=== PATIENT | female | born 1990 | race Caucasian/White ===

== ENCOUNTER 2019-05-25 15:31 | Emergency (ER) | payer OTHER ==
--- OUTSIDE RECORDS SUMMARY | 2019-05-25 15:33 | XMS REPORT ---
:1990 Author Organization [facility] Address [address] [place] [address] Dr. Aquino [address] [place] [id number] Care Team Providers Name Role Phone Unavailable Unavailable Unavailable Problems This patient has no known problems. Allergies, Adverse Reactions, Alerts This patient has no known allergies or adverse reactions. Medications This patient has no known medications. Encounters Start End Encounter Admission Attending Care Care Encounter Date/Time Date/Time Type Type Clinicians Facility Department ID 2019-02-28 2019-02-28 Outpatient [facility] [id number] 13:36:00 13:36:00
--- NOTE | 2019-05-25 17:12 | RAD REPORT ---
EXAM DESCRIPTION: Yamileth Single View05/25/2019 4:42 pm CLINICAL HISTORY: Chest pain COMPARISON: none FINDINGS: The lungs appear clear of acute infiltrate. The heart is normal size IMPRESSION: No acute abnormalities displayed
[2019-05-25 17:41] LABS: Absolute Lymphocytes (CBC) 0.9 K/uL (0.7-4.9); Basophils % 0.7 % (0-1.3); Hematocrit 36.5 % (36.0-45.0); Lymphocytes % 13.5 % (15.3-44.8); MPV 8.3 fL (7.6-11.3); RBC Red Blood Cell Count 4.45 M/uL (3.86-4.86)
[2019-05-25 17:54] LABS: Protime INR 1.06
[2019-05-25 18:11] LABS: ALT/SGPT 19 U/L (12-78); AST/SGOT 13 U/L (15-37); Albumin 3.8 g/dL (3.4-5.0); Alkaline Phosphatase 60 U/L (45-117); BUN Blood Urea Nitrogen 10 mg/dL (7-18); Bicarbonate 28 mmol/L (21-32); Bilirubin Direct < 0.1 mg/dL (0-0.2); Bilirubin Total 0.3 mg/dL (0.2-1.0); Glucose Level 95 mg/dL (74-106); Magnesium 2.1 mg/dL (1.8-2.4); NT PRO-BNP 12 pg/mL (<125); Potassium 3.7 mmol/L (3.5-5.1); Protein, Total 7.7 g/dL (6.4-8.2); Sodium Level 134 mmol/L (136-145); Troponin (Emerg Dept Use Only) < 0.02 ng/mL (0.0-0.045)
--- NOTE | 2019-05-25 18:43 | ER ---
Nurse's Notes [facility] Name: Gisela Salgado Age: 29 yrs Sex: Female : 1990 Arrival Date: 05/25/2019 Time: 15:35 Bed 5 Private MD: Diagnosis: Dyspnea;Other chest pain;Anxiety disorder, unspecified Presentation: 05/25 15:45 Presenting complaint: Patient states: i am not sure, i feel like arvind like pressure in tw2 my head for the last 2 or 3 days, i have been having chest pains i feel like on my left upper site, i got my flu shot yesterday, and i felt pretty decent and before that i felt like jittery before it, and i feel a lot of pressure in my head and i have been feeling like i am getting over headed and flush feeling in my face, then today i took naltrexone hydrochloride for weight loss, i go to a psychologist and have 2 medicines that they prescribed but he knows. Presenting complaint: Patient states: i do have anxiety and i dont feel panicky like i get when i have an anxiety attack, this feels different, those go a way and pass, i am also taking an oral antifungal foot medicine as well so i dont know if all the medicine is making me jittery or what but i just dont feel right. Transition of care: patient was not received from another setting of care. Onset of symptoms was May 25, 2019. Risk Assessment: Do you want to hurt yourself or someone else? Patient reports no desire to harm self or others. Initial Sepsis Screen: Does the patient meet any 2 criteria? HR > 90 bpm. No. Patient's initial sepsis screen is negative. Does the patient have a suspected source of infection? No. Patient's initial sepsis screen is negative. Care prior to arrival: None. 15:45 Method Of Arrival: Ambulatory tw2 15:45 Acuity: SHAWANDA 3 tw2 Triage Assessment: 15:49 General: Appears in no apparent distress. well groomed, Behavior is cooperative, tw2 appropriate for age. General: Behavior is anxious. Cardiovascular: Reports tightness. 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 - Coronavirus screen:: The patient has NOT traveled to [place] in the past 14 days. - Social history:: Smoking status: . - Ebola Screening: : Patient denies travel to an Ebola-affected area in the 21 days before illness onset. Screenin:15 Abuse screen: Denies threats or abuse. Denies injuries from another. Nutritional hb screening: No deficits noted. Tuberculosis screening: No symptoms or risk factors identified. Fall Risk None identified. Assessment: 16:15 General: Appears in no apparent distress. Behavior is calm, cooperative. Pain: hb Complains of pain in chest Pain does not radiate. Pain currently is 5 out of 10 on a pain scale. Quality of pain is described as pressure, tightness Pain began 3 hours ago. Neuro: Level of Consciousness is awake, alert, obeys commands, Oriented to person, place, time, situation. Cardiovascular: Heart tones S1 S2 present Capillary refill < 3 seconds Patient's skin is warm and dry. Respiratory: Airway is patent Respiratory effort is even, unlabored, Respiratory pattern is regular, symmetrical, Breath sounds are clear bilaterally. GI: No signs and/or symptoms were reported involving the gastrointestinal system. : No signs and/or symptoms were reported regarding the genitourinary system. EENT: No signs and/or symptoms were reported regarding the EENT system. Derm: Skin is pink, warm \T\ dry. Musculoskeletal: No signs and/or symptoms reported regarding the musculoskeletal system. 17:00 Reassessment: Patient appears in no apparent distress at this time. No changes from previously documented assessment. Patient and/or family updated on plan of care and expected duration. Pain level reassessed. 17:16 Reassessment: Chey from inside lab at bedside for blood draw. 18:00 Reassessment: Patient appears in no apparent distress at this time. Patient and/or hb family updated on plan of care and expected duration. Pain level reassessed. Patient is alert, oriented x 3, equal unlabored respirations, skin warm/dry/pink. 18:45 Reassessment: Patient appears in no apparent distress at this time. Patient and/or hb family updated on plan of care and expected duration. Pain level reassessed. Patient is alert, oriented x 3, equal unlabored respirations, skin warm/dry/pink. Patient denies pain at this time. Patient states feeling better. Patient states symptoms have improved. Vital Signs: 15:52 BP 139 / 89; Pulse 103; Resp 17; Temp 97.9(O); Pulse Ox 100% on R/A; Weight 88.45 kg tw2 (R); Height 5 ft. 7 in. (170.18 cm); Pain 6/10; 17:30 BP 124 / 89; Pulse 80; Resp 16; Pulse Ox 100% on R/A; Pain 0/10; hb 17:58 BP 111 / 75; Pulse 76; Resp 16; Pulse Ox 100% ; Pain 0/10; hb 18:14 BP 110 / 79; Pulse 91; Resp 14; Pulse Ox 100% on R/A; hb 15:52 Body Mass Index 30.54 (88.45 kg, 170.18 cm) tw2 ED Course: 15:35 Patient arrived in ED. as 15:47 Ian Miller MD is Attending Physician. kdr 15:49 Triage completed. tw2 15:49 Arm band placed on. tw2 16:15 Patient has correct armband on for positive identification. Placed in gown. Bed in low hb position. Call light in reach. Side rails up X 1. threat monitoring analyst on. Pulse ox on. NIBP on. 16:15 Patient maintains SpO2 saturation greater than 95% on room air. hb 16:28 Trudy Cruz, RN is Primary Nurse. hb 16:57 Missed attempt(s): 22 gauge in left antecubital area. Bleeding controlled, band aid hb applied, catheter tip intact. 17:14 Inserted saline lock: 22 gauge in left forearm, using aseptic technique. ll1 19:09 No provider procedures requiring assistance completed. IV discontinued, intact, hb bleeding controlled, No redness/swelling at site. Pressure dressing applied. Administered Medications: No medications were administered Intake: 15:25 IV: 1000ml; Total: 1000ml. hb Outcome: 18:42 Discharge ordered by . kdr 19:09 Discharged to home ambulatory. hb 19:09 Condition: stable 19:09 Discharge instructions given to patient, Instructed on discharge instructions, follow up and referral plans. medication usage, Demonstrated understanding of instructions, follow-up care, medications. 19:10 Patient left the ED. hb Signatures: Ian Miller MD MD kdr Martinez, Amelia as Baxter, Heather, RN RN Olivia Gonzalez RN RN tw2 Ermias Tsang RN RN ll1
--- NOTE | 2019-05-25 18:44 | EDPHYS ---
Physician Documentation [facility] Name: Gisela Salgado Age: 29 yrs Sex: Female : 1990 Arrival Date: 05/25/2019 Time: 15:35 Bed 5 Private MD: ED Physician Ian Miller HPI: 05/25 19:01 This 29 yrs old Female presents to ER via Ambulatory with complaints of Chest kdr Pain, Abdominal Pain, Numbness, Headache. 19:01 The patient has multiple c/o including left chest discomfort, head pressure, SOB upper kdr abdominal pain. She also has generalized anxiety which has been ongoing for a few days. She does not feel that this is her typical anxiety flare. She has no other focal c/o at this time. Onset: The symptoms/episode began/occurred gradually, 3 day(s) ago. Severity of symptoms: At their worst the symptoms were mild moderate just prior to arrival, in the emergency department the symptoms are unchanged. The patient has not experienced similar symptoms in the past. The patient has been recently seen by a physician: the patient's primary care provider, She has been started on some new medications recently but the SOB began before the new medications . 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 - Coronavirus screen:: The patient has NOT traveled to [place] in the past 14 days. - Social history:: Smoking status: . - Ebola Screening: : Patient denies travel to an Ebola-affected area in the 21 days before illness onset. ROS: 19:01 Constitutional: Negative for fever, chills, and weight loss, Eyes: Negative for injury, kdr pain, redness, and discharge, ENT: Negative for injury, pain, and discharge, Neck: Negative for injury, pain, and swelling, Back: Negative for injury and pain, : Negative for injury, bleeding, discharge, and swelling, MS/Extremity: Negative for injury and deformity, Skin: Negative for injury, rash, and discoloration, Psych: Negative for depression, anxiety, suicide ideation, homicidal ideation, and hallucinations, Allergy/Immunology: Negative for hives, rash, and allergies, Endocrine: Negative for neck swelling, polydipsia, polyuria, polyphagia, and marked weight changes, Hematologic/Lymphatic: Negative for swollen nodes, abnormal bleeding, and unusual bruising. 19:01 Cardiovascular: Positive for chest pain, of the anterior aspect of left upper chest and left breast, Very minor, Negative for edema, orthopnea, palpitations, paroxysmal nocturnal dyspnea, acute changes. 19:01 Respiratory: Positive for shortness of breath, at rest. Negative for hemoptysis, orthopnea, pleurisy, sputum production, wheezing. 19:01 Abdomen/GI: Positive for abdominal pain, of the epigastric area and left upper quadrant, Very minor. Exam: 19:01 Constitutional: This is a well developed, well nourished patient who is awake, alert, kdr and in no acute distress. Appears slightly dyspneic and mildly anxious Head/Face: Normocephalic, atraumatic. Eyes: Pupils equal round and reactive to light, extra-ocular motions intact. Lids and lashes normal. Conjunctiva and sclera are non-icteric and not injected. Cornea within normal limits. Periorbital areas with no swelling, redness, or edema. Neck: Trachea midline, no thyromegaly or masses palpated, and no cervical lymphadenopathy. Supple, full range of motion without nuchal rigidity, or vertebral point tenderness. No Meningismus. Chest/axilla: Normal chest wall appearance and motion. Nontender with no deformity. No lesions are appreciated. Cardiovascular: Regular rate and rhythm with a normal S1 and S2. No gallops, murmurs, or rubs. Normal PMI, no JVD. No pulse deficits. Respiratory: Lungs have equal breath sounds bilaterally, clear to auscultation and percussion. No rales, rhonchi or wheezes noted. No increased work of breathing, no retractions or nasal flaring. Abdomen/GI: Soft, non-tender, with normal bowel sounds. No distension or tympany. No guarding or rebound. No evidence of tenderness throughout. Back: No spinal tenderness. No costovertebral tenderness. Full range of motion. Skin: Warm, dry with normal turgor. Normal color with no rashes, no lesions, and no evidence of cellulitis. MS/ Extremity: Pulses equal, no cyanosis. Neurovascular intact. Full, normal range of motion. Neuro: Awake and alert, GCS 15, oriented to person, place, time, and situation. Cranial nerves II-XII grossly intact. Motor strength 5/5 in all extremities. Sensory grossly intact. Cerebellar exam normal. Normal gait. 19:01 Psych: Behavior/mood is pleasant, cooperative, anxious, Affect is calm, Oriented to person, place, time, Patient has no thoughts/intents to harm self or others. Judgement / Insight is normal. Memory is normal. Delusions/hallucinations are not present. Vital Signs: 15:52 BP 139 / 89; Pulse 103; Resp 17; Temp 97.9(O); Pulse Ox 100% on R/A; Weight 88.45 kg tw2 (R); Height 5 ft. 7 in. (170.18 cm); Pain 6/10; 17:30 BP 124 / 89; Pulse 80; Resp 16; Pulse Ox 100% on R/A; Pain 0/10; hb 17:58 BP 111 / 75; Pulse 76; Resp 16; Pulse Ox 100% ; Pain 0/10; hb 18:14 BP 110 / 79; Pulse 91; Resp 14; Pulse Ox 100% on R/A; hb 15:52 Body Mass Index 30.54 (88.45 kg, 170.18 cm) tw2 MDM: 18:42 Patient medically screened. [facility] 05/25 16:22 Order name: Basic Metabolic Panel [facility] 05/25 16:22 Order name: CBC with Diff [facility] 05/25 16:22 Order name: LFT's [facility] 05/25 16:22 Order name: Magnesium [facility] 05/25 16:22 Order name: NT PRO-BNP [facility] 05/25 16:22 Order name: PT-INR [facility] 05/25 16:22 Order name: Troponin (emerg Dept Use Only) [facility] 05/25 16:38 Order name: DD [facility] 05/25 17:49 Order name: CBC with Automated Diff; Complete Time: 18:23 EDTN 05/25 18:08 Order name: Protime (+INR); Complete Time: 18:23 EDTN 05/25 18:13 Order name: Basic Metabolic Panel; Complete Time: 18:23 EDTN 05/25 18:13 Order name: Liver (Hepatic) Function; Complete Time: 18:23 [facility] 05/25 18:13 Order name: Troponin (Emerg Dept Use Only); Complete Time: 18:23 [facility] 05/25 18:13 Order name: NT PRO-BNP; Complete Time: 18:23 [facility] 05/25 16:22 Order name: XRAY Chest (1 view) [facility] 05/25 16:22 Order name: EKG; Complete Time: 17:54 [facility] 05/25 16:22 Order name: Cardiac monitoring; Complete Time: 17:29 [facility] 05/25 16:22 Order name: EKG - Nurse/Tech; Complete Time: 16:35 [facility] 05/25 16:22 Order name: IV Saline Lock; Complete Time: 17:29 [facility] 05/25 16:22 Order name: Labs collected and sent; Complete Time: 17:29 [facility] 05/25 16:22 Order name: O2 Per Protocol; Complete Time: 16:35 [facility] 05/25 16:22 Order name: O2 Sat Monitoring; Complete Time: 16:35 [facility] 05/25 18:04 Order name: RAD; Complete Time: 18:23 [facility] 05/25 18:13 Order name: Magnesium; Complete Time: 18:23 [facility] 05/25 18:37 Order name: D-Dimer; Complete Time: 18:38 EDMS Administered Medications: No medications were administered Disposition: 05/25/19 18:42 Discharged to Home. Impression: Dyspnea, Other chest pain, Anxiety disorder, unspecified. - Condition is Stable. - Discharge Instructions: Shortness of Breath, [id number], Chest Wall Pain, [id number], Generalized Anxiety Disorder. - Medication Reconciliation Form, Thank You Letter form. - Follow up: Private Physician; When: 2 - 3 days; Reason: If symptoms return, Further diagnostic work-up, Recheck today's complaints, Continuance of care, Re-evaluation by your physician. - Problem is new. - Symptoms have improved. Signatures: Dispatcher [employer] EDTN Ian Miller MD MD kdr Ryan Fitzgerald, LAST MODEL DEPARTMENT SUPERVISOR-C LAST MODEL DEPARTMENT SUPERVISOR-Cla1 Trudy Cruz, RN RN hb Olivia Gonzalez RN RN tw2 Corrections: (The following items were deleted from the chart) 19:10 18:42 05/25/2019 18:42 Discharged to Home. Impression: Dyspnea; Other chest pain; hb Anxiety disorder, unspecified. Condition is Stable. Forms are Medication Reconciliation Form, Thank You Letter, Antibiotic Education, Prescription Opioid Use. Follow up: Private Physician; When: 2 - 3 days; Reason: If symptoms return, Further diagnostic work-up, Recheck today's complaints, Continuance of care, Re-evaluation by your physician. Problem is new. Symptoms have improved. kdr
[2019-05-25 19:21] VITALS: TEMP 97.9; O2SAT 100
[2019-05-25 19:25] VITALS: BP 110/79
--- NOTE | 2019-05-26 10:10 | EKG ---
Test Date: 2019-05-25 Test Time: 16:38:08 Hog Confinement System Manager: KATHY MEASUREMENT RESULTS: Intervals: Rate: 80 NV: 140 QRSD: 70 QT: 396 QTc: 456 [place]: P: 51 NV: 140 QRS: 23 T: 42 INTERPRETIVE STATEMENTS: Normal sinus rhythm Cannot rule out Anterior infarct, age undetermined Abnormal ECG No previous ECG available for comparison Electronically Signed On 05-26-19 10:08:51 LICENSED MASTER SOCIAL WORKER by Kg Strong
== END 2019-05-25 19:10 | disposition home or self-care (01) ==
LOC: ER 15:31
DX: F41.9 Anxiety disorder, unspecified (principal); R06.00 Dyspnea, unspecified
CPT/HCPCS: 36415; 71045; 80048; 80076; 83735; 83880; 84484; 85025; 85379; 85610; 93005; 99284